=== PATIENT | female | born 1980 | race African-American/Black ===

== ENCOUNTER 2017-11-19 10:09 | Emergency (ER) | payer BC, OTHER ==
[2017-11-19] MEDS ORDERED: predniSONE 20 MG TAB ONE (10:28)
== END 2017-11-19 10:35 | disposition home or self-care (01) ==
LOC: BURERS 10:09
DX: J02.9 Acute pharyngitis, unspecified (principal); R11.0 Nausea; I10 Essential (primary) hypertension; G43.909 Migraine, unspecified, not intractable, without status migrainosus; Z79.899 Other long term (current) drug therapy
CPT/HCPCS: 99283; J7506